=== PATIENT | male | born 1975 | race Caucasian/White ===

== ENCOUNTER → 2019-07-10 | Outpatient (CLI) | payer OTHER ==
--- NOTE | 2019-07-10 12:27 | XR ---
EXAMINATION TYPE: XR hand complete RT DATE OF EXAM: 07/10/2019 CLINICAL HISTORY: Crush injury with laceration to the right index finger. Right hand pain. TECHNIQUE: Frontal, lateral and oblique images of the right hand are obtained. COMPARISON: None. FINDINGS: There is no acute fracture/dislocation evident in the right hand. The joint spaces in the right hand appear within normal limits. No radiopaque foreign body is seen. No osseous laceration. T he overlying soft tissue appears unremarkable. IMPRESSION: There is no acute fracture or dislocation in the right hand. No radiopaque foreign body.
== END | disposition home or self-care (01) ==
LOC: RADXRMAIN 12:04
PROVIDERS: ATTEND Emergency Medicine
DX: S61.200A Unspecified open wound of right index finger without damage to nail, initial encounter (principal)

== ENCOUNTER → 2019-07-21 | Outpatient (CLI) | payer OTHER ==
--- NOTE | 2019-07-21 11:05 | XR ---
EXAMINATION TYPE: XR finger RT DATE OF EXAM: 07/21/2019 COMPARISON: 3 views of the right hand dated 07/10/2019 HISTORY: Right finger contusion just distal to the metacarpal phalangeal joint with subsequent pain. TECHNIQUE: Repeat views of the second right index finger were obtained. FINDINGS: No acute fracture or dislocation is seen of the right second digit/finger. Very minimal sub cutaneous edema possibly of the second digit. Well-corticated ossicle or old fracture deformity of th e volar surface of the distal interphalangeal joint. No radiopaque foreign body seen. IMPRESSION: Very mild soft tissue swelling of the proximal second digit of the right hand with no acu te fracture or dislocation.
== END | disposition home or self-care (01) ==
LOC: RADXRMAIN 10:40
PROVIDERS: ATTEND Emergency Medicine
DX: M79.89 Other specified soft tissue disorders (principal); L03.011 Cellulitis of right finger